=== PATIENT | male | born 1945 | race Caucasian/White ===

== ENCOUNTER 2017-03-07 10:06 | Outpatient (CLI) | payer MEDICARE, MEDICAID | END 2017-03-07 10:07 | disposition home or self-care (01) | DX: I10 Essential (primary) hypertension (principal); Z79.899 Other long term (current) drug therapy ==

== ENCOUNTER 2017-10-22 08:00 | Outpatient (CLI) | payer MEDICARE, MEDICAID ==
[2017-10-22 19:02] LABS: CALCIUM 9.1 mg/dL (8.5-10.3); CREATININE 1.3 mg/dL (0.6-1.2)
== END 2017-10-22 08:01 | disposition home or self-care (01) ==
LOC: LAB.N 08:00
PROVIDERS: ATTEND Family Medicine
DX: N18.3 Chronic kidney disease, stage 3 (moderate) (principal); I10 Essential (primary) hypertension
CPT/HCPCS: 36415; 80048

== ENCOUNTER 2017-11-17 22:01 | Emergency (ER) | payer MEDICARE, MEDICAID ==
[2017-11-17] MEDS ORDERED: CLOTRIMAZOLE 1% CREAM 15 GM TUBE TOP STA (23:28)
--- NOTE | 2017-11-17 23:38 | ED Physician Documentation ---
History of Present Illness - Stated complaint Stated Complaint: RASH LEGS/FEET - Chief complaint Chief Complaint: Ext Problem - History obtained from History obtained from: Patient - History of Present Illness Timing: How many years ago (2.5), Chronic - Additonal information Additional information: The patient is a 72-year-old male who presents with itching, swelling, and "stinging and burning" sensation of his feet and lower legs bilaterally. He reports having these symptoms for the past 2-1/2 years. There is been no recent change. His was admitted to the ICU [facility], and an ICU nurse advised him to come to the emergency department for evaluation. He has tried using Coconut oil without relief. Review of Systems Constitutional: denies: Fever Nose: denies: Congestion Respiratory: denies: Dyspnea, Cough : denies: Dysuria Skin: reports: Rash (Feet and lower legs bilaterally.) Musculoskeletal: reports: Extremity pain ("Stinging and burning."). denies: Back pain Neurologic: denies: Focal weakness, Numbness, Headache PD PAST MEDICAL HISTORY - Past Medical History Past Medical History: Yes Cardiovascular: Hypertension Respiratory: None Neuro: None Endocrine/Autoimmune: None GI: None : Retention, Kidney stones, Other HEENT: Glaucoma, Other Psych: None Musculoskeletal: None Derm: Other drug resistant infections - Past Surgical History Past Surgical History: Yes General: Appendectomy HEENT: Cataracts, Other - Present Medications Home Medications: Ambulatory Orders Medication Instructions Recorded Confirmed Losartan [Cozaar] 50 mg PO DAILY 02/04/15 11/17/17 Clotrimazole [Clotrimazole AF] 28 gm TP BID #4 cream..g. 11/17/17 Gabapentin 300 mg PO TID 11/17/17 11/17/17 - Allergies Allergies/Adverse Reactions: Allergies Allergy/AdvReac Type Severity Reaction Status Date / Time Penicillins Allergy Intermediate Rash Verified 11/17/17 22:37 diphenhydramine HCl * Allergy Hives Verified 11/17/17 22:37 [From Benadryl] hydrocodone bitartrate * AdvReac Intermediate Nausea Verified 11/17/17 22:37 [From Vicodin] promethazine HCl * AdvReac Intermediate Respiratory Verified 11/17/17 22:37 [From Phenergan] - Social History Does the pt smoke?: Yes Smoking Status: Current every day smoker Does the pt drink ETOH?: Yes Does the pt have substance abuse?: No - Immunizations Immunizations are current?: Yes Immunizations: Other immun current - POLST Patient has POLST: No PD ED PE NORMAL - Vitals Vital signs reviewed: Yes (hypertensive.) - General General: Alert and oriented X 3, Well developed/nourished - HEENT HEENT: Atraumatic, Pharynx benign - Neck Neck: No adenopathy - Cardiac Cardiac: RRR, No murmur - Respiratory Respiratory: No respiratory distress, Clear bilaterally - Back Back: No CVA TTP - Derm Derm: Other (There is a dry, slightly erythematous, rash involving the feet and lower legs bilaterally. Linear excoriations on the lower legs are noted, consistent with scratching. Onychomycosis of the toenails is noted. There is no tenderness to palpation.) - Extremities Extremities: No calf tenderness / cord, Other (Trace pedal edema bilaterally.) - Neuro Neuro: Alert and oriented X 3, No motor deficit, No sensory deficit Results - Vitals Vitals: Oxygen O2 Source Room air PD MEDICAL DECISION MAKING - ED course Complexity details: considered differential, d/w patient ED course: The patient's presentation is most consistent with athlete's foot there are no burrows present to suggest scabies, and the rash does not have the appearance of fleabites. Treatment in the emergency department included administration of nystatin cream topically. He is being discharged with prescription for clotrimazole cream. I discussed with him the diagnosis, antifungal treatment and outpatient follow-up , as well as potentially worrisome signs or symptoms that should prompt reevaluation in the emergency department. Departure - Departure Disposition: 01 Home, Self Care Clinical Impression: Athletes foot Qualifiers: Laterality: bilateral Qualified Code(s): B35.3 - Tinea pedis Condition: Stable Instructions: ED Fungal Infec Athlete Foot Follow-Up: Marcos Crooks MD [Primary Care Provider] - Prescriptions: Clotrimazole [Clotrimazole AF] 28 gm TP BID #4 cream..g. Comments: Apply antifungal cream to your lower legs twice daily as prescribed. Follow up with your primary physician within 2 weeks. Call to schedule appointment. Return to the emergency department if you develop increasing rash or itching, or otherwise worsening symptoms. Discharge Date/Time: 11/18/17 00:47
[2017-11-17] MEDS ORDERED: CLOTRIMAZOLE 1% CREAM 15 GM TUBE TOP SCH (23:45)
[2017-11-18] MEDS ORDERED: NYSTATIN CREAM 15 GM TUBE TOP STA (00:08)
[2017-11-18 00:47] VITALS: BP 160/80
== END 2017-11-18 00:47 | disposition home or self-care (01) ==
LOC: ED 22:01
DX: B35.3 Tinea pedis (principal); I10 Essential (primary) hypertension; F17.200 Nicotine dependence, unspecified, uncomplicated
CPT/HCPCS: 99283; A9270